=== PATIENT | male | born 1950 | race Caucasian/White ===

== ENCOUNTER 2025-04-20 20:59 | Emergency (ER) | payer MEDICARE, OTHER ==
[~2025-04-20] VITALS: Ht 188 cm; Wt 75.0 kg
[~2025-04-20 20:59] MED LIST: HYDR25TA2 PO; LOSA-382 PO; OMEG-135 PO; POTA-92 PO; TRAZ-252 PO
[2025-04-20 21:14] VITALS: BP 183/84; PULSE 60; RESP 16; TEMP 97.9; O2SAT 98
[2025-04-20 22:11] LABS: PLATELET COUNT (AUTO) 400 K/uL (150-450); RED BLOOD CELL COUNT(AUTO) 4.43 MIL/uL (4.50-5.90); RED CELL DISTRIBUTION WIDTH 15.3 % (11.5-14.5); WHITE BLOOD COUNT (AUTO) 6.8 K/uL (4.5-11.0)
[2025-04-20 22:24] LABS: CALCIUM, TOTAL 9.4 mg/dL (8.8-10.5); CREATININE 1.3 mg/dL (0.60-1.30); GLOMERULAR FILTR. RATE CALC 54.0 mL/min (>60); GLUCOSE,RANDOM 93.0 mg/dL (70-110); SODIUM SERUM 136.0 mmol/L (136-145); UREA NITROGEN, BLOOD 16.0 mg/dL (7-18)
[2025-04-20 22:35] LABS: LACTIC ACID 0.9 mmol/L (0.4-2.0)
[2025-04-20] MEDS: ACETAMINOPHEN 500 MG TABLET PO ONE (23:52)
== END 2025-04-21 00:36 | disposition home or self-care (01) ==
LOC: EMS 21:31
DX: S82.891A Other fracture of right lower leg, initial encounter for closed fracture (principal); F41.9 Anxiety disorder, unspecified; I10 Essential (primary) hypertension; F32.A Depression, unspecified; Z98.890 Other specified postprocedural states; Z79.899 Other long term (current) drug therapy; X58.XXXA Exposure to other specified factors, initial encounter; Y93.89 Activity, other specified; Y92.89 Other specified places as the place of occurrence of the external cause; Y99.8 Other external cause status
CPT/HCPCS: 80048; 83605; 85025; 87040; 99283